=== PATIENT | male | born 1965 | race Caucasian/White ===

== ENCOUNTER 2018-05-05 19:56 | Inpatient (IN) ==
[2018-05-09 11:50] VITALS: BP 145/83
== END 2018-05-09 14:29 | disposition home health service (06) | DRG 475 ==
LOC: N.ED 19:56 → SUATTDRO 22:40 → N.EDINP 22:40 → N.3E 22:55
PROVIDERS: ADMIT Internal Medicine; ATTEND Internal Medicine

== ENCOUNTER 2019-01-11 12:08 | Inpatient (IN) ==
[2019-01-11] MEDS ORDERED: VANCOMYCIN INJ 1,000 MG in SODIUM CHLORIDE 0.9% 250 ML IV STA (12:29)
[2019-01-11] MEDS ORDERED: cefTRIAXone 2,000 MG in SODIUM CHLORIDE 0.9% 100 ML IV ONE (12:29)
[2019-01-11] MEDS ORDERED: cefTRIAXone 1,000 MG VIAL ONE (12:58)
[2019-01-11] MEDS ORDERED: PROPOFOL 1,000 MG/100 ML BOTTLE IV ONE (13:04)
[2019-01-11 13:19] LABS: ABG Base Excess -13.1 MMOL/L (-2.5-2.5); ABG HCO3 14.7 MMOL/L (20-26); ABG Oxygen Saturation 98.3 % (95-100); ABG TCO2 17.3 MMOL/L (23-27)
[2019-01-11] MEDS: PROPOFOL 1,000 MG/100 ML BOTTLE IV SCH (13:20)
[2019-01-11 13:21] LABS: ABG PH 7.086 (7.35-7.45)
[2019-01-11 13:34] LABS: Basophils % 0.4 % (0.0-0.8); Lymphocytes % 5.8 % (21.2-54.2)
[2019-01-11 13:42] LABS: Basophils # 0.1 10*3/uL (0.0-0.2); Hematocrit 54.2 VOL% (42.0-52.0); Hemoglobin 17.1 GM/DL (14.0-18.0); INR 1.2; Immature Granulocytes % 1.3 %; Immature Granulocytes Absolute 0.29 #; Lymphocytes # 1.3 10*3/uL (1.4-4.0); Mean Corpuscular HGB Conc 31.5 GM/DL (32-36); Mean Corpuscular Hemoglobin 28 PG (27-34); Mean Corpuscular Volume 88.1 FL (87-102); Mean Platelet Volume 9.8 FL (9.6-12.0); Monocytes # 0.8 10*3/uL (0.11-0.8); Monocytes % 3.6 % (1.7-12.7); Neutrophils # 20.1 10*3/uL (1.4-7.4); Neutrophils % 88.9 % (38.7-73.9); PT Patient Result 12.7 SECS; Platelet Count 214 T/CUMM (130-400); Red Blood Count 6.15 MC/CUMM (3.8-5.5); Red Cell Distribution Width 12.4 % (9.3-17.3); White Blood Count 22.6 T/CUMM (4-12)
[2019-01-11 13:52] LABS: Partial Thromboplastin Time 31.9 SECS (0-40)
[2019-01-11 14:00] LABS: Apearance,Urine Slightly Hazy (Clear); Bacteria,Urine Occasional /HPF (Few); Bilirubin,Urine Negative (Negative); Blood, Urine Moderate mg/dL (Negative); Glucose,Urine (UA) 50 mg/dL (Negative); Ketones,Urine 5 mg/dL (Negative); Mucus,Urine Occasional /LPF (Occasional); Nitrite,Urine Negative (Negative); Protein,Urine 100 MG/DL; RBC,Urine 3 /HPF (0-4); Sperm,Urine Occasional /HPF (Negative); Urine Color Yellow (Yellow); Urine Specific Gravity 1.019 (1.001-1.035); Urine Urobilinogen < 2.0 EU/DL (0.2-1.0); WBC,Urine 4 /HPF (0-6)
[2019-01-11] MEDS ORDERED: VECURONIUM 10 MG VIAL IV STA (14:02)
[2019-01-11] MEDS ORDERED: ETOMIDATE 20 MG/10 ML VIAL IV STA (14:03)
[2019-01-11] MEDS ORDERED: ROCURONIUM 100 MG/10 ML VIAL IV STA (14:03)
[2019-01-11 14:06] LABS: Bilirubin,Total 0.4 MG/DL (0.2-1.0); Calcium 7.8 MG/DL (8.5-10.1); Osmolality,Calculated 277.1 MOS/KG (273-304); Potassium 3.1 MMOL/L (3.5-5.1); Total Protein 6.5 G/DL (6.4-8.3)
[2019-01-11 14:10] LABS: Lymphocytes,CSF 9 %; Monocytes,CSF 3 %; Neutrophils,CSF 88 %; White Blood Cell,CSF 11292 C/CUMM
[2019-01-11 14:11] LABS: Appearance,CSF Cloudy; Red Blood Cell,CSF 667 C/CUMM
[2019-01-11 14:13] LABS: Barbiturates Screen,Urine Negative (Negative); Benzodiazepines Screen,Urine Negative (Negative); Cannabinoid Screen,Urine Negative (Negative); Opiate Screen,Urine Negative (Negative); Phencyclidine Screen,Urine Negative (Negative)
[2019-01-11 14:29] LABS: Lymphocytes 7 % (20-55)
[2019-01-11 14:30] LABS: Eosinophils 1 % (0-10)
[2019-01-11 14:31] LABS: Platelet Estimate Normal; Segmented Neutrophils 91 % (50-85)
[2019-01-11 14:32] LABS: Macrocytosis Slight
[2019-01-11 14:34] LABS: Total Cells Counted 101
[2019-01-11 14:38] LABS: Sedimentation Rate-Westergren 3 MM/HR (0-20)
[2019-01-11] MEDS ORDERED: LORazepam 2 MG/1 ML VIAL IV STA ×2 (15:08→15:17)
[2019-01-11] MEDS ORDERED: ONDANSETRON 4 MG/2 ML VIAL IV PRN (15:58)
[2019-01-11] MEDS ORDERED: MORPHINE 4 MG/1 ML VIAL IV PRN ×2 (15:58→21:13)
[2019-01-11] MEDS ORDERED: VECURONIUM 10 MG VIAL IV ONE (16:13)
[2019-01-11] MEDS ORDERED: SODIUM CHLORIDE 0.9% 1,000 ML IV ONE (16:48)
[2019-01-11] MEDS ORDERED: EPINEPHrine 1 MG/10 ML SYRINGE ONE ×2 (16:53→17:03)
[2019-01-11] MEDS: DOPamine 800 MG/250 ML PREMIX IV PRN ×2 (17:00→19:00)
[2019-01-11] MEDS ORDERED: VANCOMYCIN INJ 1,000 MG in SODIUM CHLORIDE 0.9% 250 ML IV ONE (17:00)
[2019-01-11] MEDS ORDERED: HYDROCORTISONE 100 MG VIAL ONE (17:03)
[2019-01-11] MEDS ORDERED: CALCIUM CHLORIDE 1,000 MG/10 ML SYRINGE IV ONE (17:03)
[2019-01-11] MEDS ORDERED: SODIUM BICARBONATE 10 MEQ/10 ML SYRINGE IV ONE (17:03)
[2019-01-11] MEDS ORDERED: DOPamine 800 MG/250 ML PREMIX IV ONE (17:03)
[2019-01-11 17:05] LABS: Apearance,Urine CLOUDY (Clear); Bacteria,Urine Few /HPF (Few); Bilirubin,Urine Negative (Negative); Blood, Urine Small mg/dL (Negative); Glucose,Urine (UA) Negative (Negative); Ketones,Urine Negative (Negative); Mucus,Urine Few /LPF (Occasional); Nitrite,Urine Negative (Negative); Protein,Urine 30 MG/DL; RBC,Urine 7 /HPF (0-4); Sperm,Urine Occasional /HPF (Negative); Squamous Epithelial Cell,Urine Occasional /HPF (0-10); Urine Specific Gravity 1.027 (1.001-1.035); Urine Urobilinogen < 2.0 EU/DL (0.2-1.0); WBC,Urine 3 /HPF (0-6)
[2019-01-11 17:06] LABS: Urine Color Yellow (Yellow)
[2019-01-11 17:32] LABS: ABG Base Excess -7.6 MMOL/L (-2.5-2.5); ABG HCO3 18.2 MMOL/L (20-26); ABG Oxygen Saturation 92.1 % (95-100); ABG PCO2 61.1 MM HG (35-48); ABG PO2 78.7 MM HG (80-95); ABG TCO2 20.5 MMOL/L (23-27); Pt O2 Delivery Device Ventilator
[2019-01-11 17:33] LABS: ABG PH 7.163 (7.35-7.45)
[2019-01-11] MEDS ORDERED: SODIUM BICARBONATE 50 MEQ/50 ML VIAL IV ONE (17:36)
[2019-01-11] MEDS: SODIUM CHLORIDE 0.9% 1,000 ML IV SCH ×2 (18:31→23:05)
[2019-01-11] MEDS: DEXAMETHASONE 4 MG/1 ML VIAL IV SCH (18:33)
[2019-01-11] MEDS: SODIUM BICARB INJ 150 MEQ in DEXTROSE 5% 1,000 ML IV SCH (18:34)
[2019-01-11] MEDS: NOREPINEPHRINE 8 MG in SODIUM CHLORIDE 0.9% 242 ML IV PRN ×2 (19:00→22:20)
[2019-01-11 19:32] LABS: HIV Antigen/Antibody Result Nonreactive (Nonreactive)
[2019-01-11] MEDS: ALBUTEROL/IPRATROPIUM 3 ML NEB RESP TX SCH (20:16)
[2019-01-11] MEDS ORDERED: LORazepam 2 MG/1 ML VIAL IV PRN (21:10)
[2019-01-11] MEDS: ENOXAPARIN 30 MG/0.3 ML SYRINGE SUBCUT SCH (21:58)
[2019-01-11] MEDS: cefTRIAXone 2,000 MG in SYRINGE 1 EACH IV SCH (21:58)
[2019-01-11] MEDS: ACYCLOVIR INJ 750 MG in SODIUM CHLORIDE 0.9% 250 ML IV SCH (22:35)
[2019-01-11] MEDS: AMPICILLIN INJ 2,000 MG in SODIUM CHLORIDE 0.9% 100 ML IV SCH (22:35)
[2019-01-12] MEDS: ALBUTEROL/IPRATROPIUM 3 ML NEB RESP TX SCH ×4 (00:24→19:10)
[2019-01-12] MEDS: DOPamine 800 MG/250 ML PREMIX IV PRN ×2 (00:40→15:00)
[2019-01-12] MEDS: NOREPINEPHRINE 16 MG in SODIUM CHLORIDE 0.9% 234 ML IV PRN ×3 (01:40→19:50)
[2019-01-12] MEDS: SODIUM BICARB INJ 150 MEQ in DEXTROSE 5% 1,000 ML IV SCH ×3 (01:48→17:40)
[2019-01-12] MEDS: DEXAMETHASONE 4 MG/1 ML VIAL IV SCH ×3 (01:48→16:10)
[2019-01-12] MEDS: AMPICILLIN INJ 2,000 MG in SODIUM CHLORIDE 0.9% 100 ML IV SCH ×4 (02:32→22:05)
[2019-01-12 04:05] LABS: Allen Test Positive; Pt O2 Delivery Device Ventilator
[2019-01-12 04:17] LABS: ABG Base Excess 0.4 MMOL/L (-2.5-2.5); ABG HCO3 24.8 MMOL/L (20-26); ABG Oxygen Saturation 99.3 % (95-100); ABG PCO2 33.4 MM HG (35-48); ABG PH 7.455 (7.35-7.45); ABG TCO2 19.7 MMOL/L (23-27)
[2019-01-12 05:50] LABS: Basophils # 0.1 10*3/uL (0.0-0.2); Basophils % 0.3 % (0.0-0.8); Hematocrit 44.9 VOL% (42.0-52.0); Hemoglobin 14.5 GM/DL (14.0-18.0); Immature Granulocytes % 0.9 %; Immature Granulocytes Absolute 0.22 #; Lymphocytes # 0.7 10*3/uL (1.4-4.0); Lymphocytes % 3.2 % (21.2-54.2); Mean Corpuscular HGB Conc 32.3 GM/DL (32-36); Mean Corpuscular Hemoglobin 28 PG (27-34); Mean Platelet Volume 10.5 FL (9.6-12.0); Monocytes % 4.4 % (1.7-12.7); Neutrophils # 21.2 10*3/uL (1.4-7.4); Neutrophils % 91.2 % (38.7-73.9); Platelet Count 157 T/CUMM (130-400); Red Blood Count 5.22 MC/CUMM (3.8-5.5); Red Cell Distribution Width 12.5 % (9.3-17.3); White Blood Count 23.3 T/CUMM (4-12)
[2019-01-12] MEDS: ACYCLOVIR INJ 750 MG in SODIUM CHLORIDE 0.9% 250 ML IV SCH ×3 (05:54→22:45)
[2019-01-12 06:16] LABS: Calcium 7.2 MG/DL (8.5-10.1); Osmolality,Calculated 313.1 MOS/KG (273-304); Potassium 3.8 MMOL/L (3.5-5.1)
[2019-01-12 06:19] LABS: Troponin I 0.455 NG/ML (0.00-0.045)
[2019-01-12 06:47] LABS: Band Neutrophils 13 % (0-10); Lymphocytes 6 % (20-55); Platelet Estimate Adequate; Segmented Neutrophils 79 % (50-85); Total Cells Counted 100
[2019-01-12 06:48] LABS: Hypochromasia 1+; Macrocytosis Slight
[2019-01-12] MEDS: SODIUM CHLORIDE 0.9% 1,000 ML IV SCH ×2 (08:15→16:11)
[2019-01-12] MEDS ORDERED: GLUCAGON 1 MG VIAL IM PRN (08:20)
[2019-01-12] MEDS ORDERED: DEXTROSE 50% 25 GM/50 ML SYRINGE IV PRN (08:20)
[2019-01-12] MEDS ORDERED: cefTRIAXone 2,000 MG in SYRINGE 1 EACH IV SCH (09:00)
[2019-01-12] MEDS: INSULIN LISPRO 100 UNIT/ML SUBCUT SCH ×4 (09:01→22:04)
[2019-01-12] MEDS: cefTRIAXone 2,000 MG in SYRINGE 1 EACH IV SCH ×2 (09:02→22:04)
[2019-01-12] MEDS: PROPOFOL 1,000 MG/100 ML BOTTLE IV SCH (14:47)
[2019-01-12] MEDS: VANCOMYCIN INJ 1,500 MG in SODIUM CHLORIDE 0.9% 500 ML IV SCH (14:47)
[2019-01-12] MEDS: ENOXAPARIN 30 MG/0.3 ML SYRINGE SUBCUT SCH (22:05)
[2019-01-13] MEDS: ALBUTEROL/IPRATROPIUM 3 ML NEB RESP TX SCH ×4 (00:20→20:14)
[2019-01-13] MEDS: DEXAMETHASONE 4 MG/1 ML VIAL IV SCH ×3 (00:52→20:26)
[2019-01-13] MEDS: INSULIN LISPRO 100 UNIT/ML SUBCUT SCH ×6 (00:52→20:25)
[2019-01-13] MEDS: SODIUM CHLORIDE 0.9% 1,000 ML IV SCH (02:50)
[2019-01-13] MEDS: SODIUM BICARB INJ 150 MEQ in DEXTROSE 5% 1,000 ML IV SCH (02:50)
[2019-01-13 03:34] LABS: ABG Base Excess 12.2 MMOL/L (-2.5-2.5); ABG HCO3 34.5 MMOL/L (20-26); ABG PCO2 35.9 MM HG (35-48); ABG PO2 300.2 MM HG (80-95); ABG TCO2 35.6 MMOL/L (23-27); Allen Test Positive; Pt O2 Delivery Device Ventilator
[2019-01-13] MEDS: AMPICILLIN INJ 2,000 MG in SODIUM CHLORIDE 0.9% 100 ML IV SCH ×5 (03:43→22:18)
[2019-01-13 03:52] LABS: Basophils % 0.1 % (0.0-0.8); Hematocrit 34.2 VOL% (42.0-52.0); Hemoglobin 11.3 GM/DL (14.0-18.0); Immature Granulocytes % 2.2 %; Immature Granulocytes Absolute 0.45 #; Lymphocytes % 5.1 % (21.2-54.2); Mean Corpuscular Hemoglobin 28 PG (27-34); Mean Corpuscular Volume 85.3 FL (87-102); Mean Platelet Volume 11.1 FL (9.6-12.0); Monocytes # 0.9 10*3/uL (0.11-0.8); Monocytes % 4.3 % (1.7-12.7); NRBC # 0.02 10*3/uL; Neutrophils # 17.8 10*3/uL (1.4-7.4); Neutrophils % 88.3 % (38.7-73.9); Platelet Count 147 T/CUMM (130-400); Red Blood Count 4.01 MC/CUMM (3.8-5.5); Red Cell Distribution Width 12.5 % (9.3-17.3); White Blood Count 20.2 T/CUMM (4-12)
[2019-01-13 04:09] LABS: Calcium 7.8 MG/DL (8.5-10.1); Osmolality,Calculated 334.3 MOS/KG (273-304); Potassium 2.6 MMOL/L (3.5-5.1)
[2019-01-13] MEDS ORDERED: SODIUM CHLORIDE 0.45% 1,000 ML IV SCH (04:30)
[2019-01-13 04:49] LABS: Band Neutrophils 10 % (0-10); Lymphocytes 9 % (20-55); Metamyelocytes 5 %; Myelocytes 1 %; Segmented Neutrophils 72 % (50-85); Total Cells Counted 100
[2019-01-13 04:50] LABS: Reactive Lymphocytes 1+
[2019-01-13 04:52] LABS: Platelet Estimate Adequate
[2019-01-13 04:53] LABS: Hypochromasia Slight
[2019-01-13] MEDS ORDERED: POTASSIUM CHLORIDE RIDER 10 MEQ in PREMIX 1 EACH IV PRN (05:21)
[2019-01-13] MEDS: ACYCLOVIR INJ 750 MG in SODIUM CHLORIDE 0.9% 250 ML IV SCH ×3 (06:17→22:16)
[2019-01-13] MEDS: POTASSIUM CHLORIDE RIDER 20 MEQ in PREMIX 1 EACH IV PRN ×4 (07:10→20:26)
[2019-01-13] MEDS ORDERED: MAGNESIUM SULF RIDER 2 GM in PREMIX 1 EACH IV ONE (08:08)
[2019-01-13] MEDS ORDERED: DEXTROSE 50% 25 GM/50 ML SYRINGE IV PRN (08:08)
[2019-01-13] MEDS ORDERED: GLUCAGON 1 MG VIAL IM PRN (08:08)
[2019-01-13] MEDS: cefTRIAXone 2,000 MG in SYRINGE 1 EACH IV SCH ×2 (08:16→20:26)
[2019-01-13] MEDS: POTASSIUM CHLORIDE INJ 40 MEQ in DEXTROSE 5% 1,000 ML IV SCH ×3 (08:17→21:50)
[2019-01-13] MEDS: NOREPINEPHRINE 16 MG in SODIUM CHLORIDE 0.9% 234 ML IV PRN (08:26)
[2019-01-13] MEDS ORDERED: DEXTROSE 5% 1,000 ML IV SCH (08:30)
[2019-01-13] MEDS ORDERED: POTASSIUM CHLORIDE 20 MEQ/15 ML UDCUP PER TUBE SCH (08:30)
[2019-01-13] MEDS: INSULIN GLARGINE 100 UNIT/ML SUBCUT SCH ×2 (09:15→09:24)
[2019-01-13] MEDS: VANCOMYCIN INJ 1,500 MG in SODIUM CHLORIDE 0.9% 500 ML IV SCH (14:56)
[2019-01-13] MEDS: PROPOFOL 1,000 MG/100 ML BOTTLE IV SCH (14:56)
[2019-01-13] MEDS ORDERED: ENOXAPARIN 40 MG/0.4 ML SYRINGE SUBCUT SCH (21:00)
[2019-01-14] MEDS: ALBUTEROL/IPRATROPIUM 3 ML NEB RESP TX SCH ×3 (00:12→13:20)
[2019-01-14] MEDS: INSULIN LISPRO 100 UNIT/ML SUBCUT SCH ×4 (00:26→13:35)
[2019-01-14 03:45] LABS: Calcium 7.1 MG/DL (8.5-10.1); Osmolality,Calculated 326.6 MOS/KG (273-304); Potassium 3.5 MMOL/L (3.5-5.1)
[2019-01-14 04:37] LABS: ABG Base Excess 8.7 MMOL/L (-2.5-2.5); ABG HCO3 32.5 MMOL/L (20-26); ABG Oxygen Saturation 98.8 % (95-100); ABG PCO2 40.2 MM HG (35-48); ABG PH 7.515 (7.35-7.45); Allen Test Positive; Pt O2 Delivery Device Ventilator
[2019-01-14] MEDS: POTASSIUM CHLORIDE INJ 40 MEQ in DEXTROSE 5% 1,000 ML IV SCH ×2 (04:43→13:37)
[2019-01-14] MEDS: AMPICILLIN INJ 2,000 MG in SODIUM CHLORIDE 0.9% 100 ML IV SCH ×2 (04:43→09:30)
[2019-01-14] MEDS: ACYCLOVIR INJ 750 MG in SODIUM CHLORIDE 0.9% 250 ML IV SCH (05:17)
[2019-01-14] MEDS: POTASSIUM CHLORIDE RIDER 20 MEQ in PREMIX 1 EACH IV PRN (06:10)
[2019-01-14] MEDS: DEXAMETHASONE 4 MG/1 ML VIAL IV SCH (09:28)
[2019-01-14] MEDS: cefTRIAXone 2,000 MG in SYRINGE 1 EACH IV SCH (09:29)
[2019-01-14] MEDS: INSULIN GLARGINE 100 UNIT/ML SUBCUT SCH (09:29)
[2019-01-14] MEDS ORDERED: CLINDAMYCIN INJ 600 MG in PREMIX 1 EACH IV SCH (15:00)
[2019-01-14] MEDS ORDERED: DEXTROSE 5% NACL 0.45% 1,000 ML IV SCH (15:00)
[2019-01-14 16:15] VITALS: BP 107/65
[2019-01-16 13:01] LABS: M. Tuberculosis PCR Result Negative (Negative); M. Tuberculosis PCR Source CSF
[2019-01-16 15:21] LABS: West Nile Virus Ab, IgG, CSF Negative (Negative); West Nile Virus Ab, IgM, CSF Negative (Negative)
== END 2019-01-14 15:43 | disposition expired | DRG 94 ==
LOC: EDBD → EDUNIT# → N.ED 12:08 → SUATTDRO 14:26 → N.EDINP 15:26 → N.CC 15:36
PROVIDERS: ADMIT Internal Medicine; ATTEND Family Medicine